=== PATIENT | female | born 1985 | race Caucasian/White ===

== ENCOUNTER 2020-05-08 18:50 | Inpatient (IN) | payer MEDICAID, SELFPAY ==
[2020-05-08 19:19] VITALS: BMI 51.6
[2020-05-08 19:31] VITALS: O2SAT 98
[2020-05-08 19:32] VITALS: BP 134/87; PULSE 100; TEMP 36.3; O2SAT 98
[2020-05-08] MEDS: Lactated Ringers 1,000 ML 50 ML IV (20:00)
[2020-05-08 20:11] LABS: Absolute Lymphocyte Count 2.98 X10^3/uL (0.83-4.51); Absolute Neutrophil Count 9.8 X10^3/uL (2.0-7.7); Basophil# 0.04 X10^3/uL; Basophil% 0.3 % (0-1); Eosinophil# 0.44 X10^3/uL; Eosinophils% 3.1 % (0-5); Hemoglobin 11.7 g/dL (12.0-15.0); Lymphocyte # 2.98 X10^3/ul (4.0); Mean Corp Hgb Conc 31.6 g/dL (32-36); Mean Corpuscular Hgb 26.1 pg (27.0-32.0); Mean Corpuscular Volume 82.6 fL (81-99); Mean Platelet Vol. 10.3 fl (6.2-12.0); Monocyte# 0.84 X10^3/uL; Monocyte% 5.9 % (0-10); NRBC Flagged by Analyzer 0 % (0-5); Neutrophil # 9.84 X10^3/uL (2.7-7.7); Neutrophil % 69.3 % (47-70); Platelet Count 295 K/mm3 (150-450); RBC Distribution Width SD 42.3 fl (35.1-43.9); Red Blood Count 4.48 M/mm3 (4.2-5.4); White Blood Count 14.2 K/mm3 (4.4-11.0)
[2020-05-08] MEDS: miSOPROStol 25 MCG TABLET PO (20:17)
--- NOTE | 2020-05-08 20:49 | PCM.HP.OB ---
- Problem List (1) Chronic hypertension affecting Status: Acute (2) Obesity Status: Acute Qualifiers: Obesity type: unspecified obesity type Obesity classification: unspecified obesity classification Serious obesity comorbidity presence: unspecified whether serious comorbidity present Qualified Code(s): E66.9 - Obesity, unspecified (3) with 39 completed weeks gestation Status: Acute History Date of Admission: 05/08/20 Final NOAH: 05/14/20 Gestational age: 39 Weeks and 1 Days History of this : This is a 34 year-old, G [1], P [0], at 39.1 weeks gestational age for induction of labor for chronic hypertension. Patient denies any loss of fluid, vaginal bleeding or contractions. Positive movement. Denies any headaches or vision changes. complicated by obesity (BMI 52.8), chronic hypertension, S>D but growth US on 04/21/20 shows 50th percentile. Allergies Penicillins Adverse Reaction (Verified 05/08/20 20:04) Rash Home Medications: Home Medications Pnv No.95/Ferrous Fum/Folic AC [ Caplet] 1 tab PO DAILY 05/08/20 Smoking Status: Former smoker Number of Fetus(es): 1 NST - FHR Rate Baby A Baseline: 135 Variability:: Moderate Accelerations:: 15 x 15 Decelerations:: None NST Reactive:: Yes FHR Category:: Category I Uterine Activity:: Irritability History Past Pregnancies: Past Pregnancies Delivery Date Name GA/ Weeks Outcome Route Wt Infant Sex Labor Length Anesthesia Delivery Location Provider FOB Labs: COVID-19 Negative on 05/07/20 A positive Rubella- immune HB- negative RPR- NR HIV- NR GC/CH- negative GBS negative 1 hr GCT - elevated at 156 3 hr GCC- within normal limits PIH labs on 04/14/20- within normal limits Expected Delivery Method: Spontaneous Vaginal Review of Systems Constitutional: Denies: Anorexia, Chills, Fever Cardiovascular: Denies: Chest Pain Respiratory: Denies: Cough, Shortness of Breath Gastrointestinal: Denies: Abdominal Pain Genitourinary: Denies: Dysuria Gynecological: Denies: Vaginal bleeding Neurological: Denies: Blurred vision, Headaches Physical Exam Vitals: Vital Signs Temp Pulse BP Pulse Ox 97.4 F L 100 134/87 H 98 05/08/20 19:32 05/08/20 19:32 05/08/20 19:32 05/08/20 19:32 General: Alert, Oriented x3, Cooperative Cardiovascular: Regular rate, Regular Rhythm Lungs: Clear to auscultation, Normal air movement Abdomen: Soft, Gravid Neurological: Cranial nerves II-XII grossly intact [employer] ADS: Normal external genitalia Presentation: Cephalic Cervix Dilation (cm): 0.5 Station: -3 Effacement (%): 40 Assessment/Plan All Active Problems Chronic hypertension affecting (Acute) Obesity (Acute) with 39 completed weeks gestation (Acute) This is a 34 year-old, G [1], P [0], at 39 weeks gestational age here for induction of labor for chronic hypertension A/P Admit to labor and delivery Routine labs GBS negative IV fluids per protocol Hypertension protocol Cytotec 25 mcg PO every 4 hours throughout night Placement of Wilks bulb in AM Anticipate
[2020-05-08 21:09] VITALS: BP 141/83; PULSE 92; TEMP 36.9; O2SAT 97
[2020-05-08 21:58] VITALS: PULSE 84; O2SAT 97
[2020-05-08 21:59] VITALS: BP 138/80; PULSE 86; TEMP 36.4; O2SAT 97
[2020-05-08] MEDS: 0.9% Saline Lock 10 ML Syringe IV (22:04)
[2020-05-09] VITALS (43 sets, daily range): BP systolic 126–149; BP diastolic 60–80; PULSE 80–100; TEMP 36.3–37.8; O2SAT 94–100
[2020-05-09] MEDS: miSOPROStol 25 MCG TABLET PO ×2 (00:31→05:32)
[2020-05-09] MEDS: 0.9% Saline Lock 10 ML Syringe IV (04:27)
[2020-05-09] MEDS: Lactated Ringers 500 ML 999 ML IV ×2 (04:35→15:30)
[2020-05-09] MEDS: 0.9% Normal Saline Single 100 ML IV.SOLN. IY (08:35)
--- NOTE | 2020-05-09 08:44 | PCM.PN.OB ---
Patient Problems: Active and Suspected Problems Chronic hypertension affecting (Acute) Obesity (Acute) with 39 completed weeks gestation (Acute) Subjective: Doing well, laying comfortable in bed. Partner at bedside. Objective: FHT 130, moderate variability, accels, no decels, Category 1 TOCO: Irregular, mild Cervix: 1cm/70%/-2 Wilks catheter inserted into cervix without complication, 40ml of NS instilled, patient tolerated well. - Physical Exam Vitals/I&O's: Vital Signs Temp Pulse BP Pulse Ox 97.7 F L 95 133/72 H 96 05/09/20 07:41 05/09/20 07:41 05/09/20 07:41 05/09/20 07:41 Weight: 300 lb 12.8 oz Body Mass Index (BMI) 51.6 Intake and Output for Last 24 Hours 05/07/20 05/08/20 05/09/20 23:59 23:59 23:59 Intake Total 103.33 / 103.33 1106.67 / 1106.67 Output Total 700 / 700 Balance 103.33 / 103.33 406.67 / 406.67 Laboratory Results 05/08/20 20:00: WBC 14.2 H, RBC 4.48, Hgb 11.7 L, Hct 37.0, MCV 82.6, MCH 26.1 L, MCHC 31.6 L, RDW Std Deviation 42.3, RDW Coeff of Young 14.0, Plt Count 295, MPV 10.3, Immature Gran % (Auto) 0.400, Neut % (Auto) 69.3, Lymph % (Auto) 21.0, [place] % (Auto) 5.9, Eos % (Auto) 3.1, Baso % (Auto) 0.3, Absolute Neuts (auto) 9.8 H, Absolute Lymphs (auto) 2.98, Nucleated RBC % 0 05/08/20 20:00: Blood Type A POSITIVE, Antibody Screen NEGATIVE Current Medications Acetaminophen (Tylenol) 325 - 650 mg PO Q4H PRN PRN PRN Reason: Pain Score 1-3/10 Al Hydroxide/Mg Hydroxide (Mylanta Ii) 15 - 30 ml PO Q4H PRN PRN PRN Reason: INDIGESTION Citric Acid/Sodium Citrate (Bicitra) 30 ml PO X1 PRN PRN Reason: Section Fentanyl Citrate (Sublimaze (100mcg Ampule)) 25 - 50 mcg IV Q2H PRN PRN PRN Reason: Pain Score 4-10/10 Lactated Ringer's () 500 mls @ 999 mls/hr IV .Q31M PRN PRN Reason: Epidural Lactated Ringer's () 500 mls @ 999 mls/hr IV .Q31M PRN PRN Reason: Corrective Measures Last Infusion: 05/09/20 05:06 Dose: Infused Documented by: Lactated Ringer's () 1,000 mls @ 50 mls/hr IV .Q20H PEDRO Last Infusion: 05/09/20 05:06 Dose: 50 mls/hr Documented by: Misoprostol (Cytotec) 25 mcg PO Q4H PEDRO Last Admin: 05/09/20 05:32 Dose: 25 mcg Documented by: Ondansetron HCl (Zofran) 4 mg IV Q4H PRN PRN PRN Reason: NAUSEA Prochlorperazine Edisylate (Compazine Iv) 10 mg IV Q6H PRN PRN PRN Reason: NAUSEA Sodium Chloride () 10 - 40 ml IV X1 PRN PRN Reason: SALINE FLUSH Last Admin: 05/09/20 04:27 Dose: 10 ml Documented by: Medical Necessity - Tobacco Use Smoking Status: Former smoker Assessment/Plan All Active Problems Chronic hypertension affecting (Acute) Obesity (Acute) with 39 completed weeks gestation (Acute) A:Induction of Labor P: 1) Wilks catheter inserted, will plan to start pitocin around 930am, 4 hours after Cytotec. 2) EFM and TOCO 3) Continue with IOL 4) collaborative physician and notified of patient status.
[2020-05-09] MEDS: Oxytocin 30 units/NS 500 ml 30 UNITS/500 ML IV.SOLN IV (10:33)
[2020-05-09] MEDS: fentaNYL-bupivacaine (epidural) 100 ML BAG EPIDURAL ×2 (16:27→20:32)
[2020-05-09] MEDS: Lactated Ringers 1,000 ML 200 ML IV ×2 (16:40→20:31)
--- NOTE | 2020-05-09 18:09 | PCM.PN.OB ---
Patient Problems: Active and Suspected Problems Chronic hypertension affecting (Acute) Obesity (Acute) with 39 completed weeks gestation (Acute) Subjective: Resting well and comfortable with epidural. Partner at bedside. Objective: FHT 140, moderate variability, accels, Category 1 TOCO: Irregular, Pitocin at 18mu's Cervix 4/70/-1 IBOW AROM for moderate amount of clear fluid patient tolerated well. - Physical Exam Vitals/I&O's: Vital Signs Temp Pulse BP Pulse Ox 98.7 F 95 130/67 H 100 05/09/20 17:23 05/09/20 17:23 05/09/20 17:23 05/09/20 17:23 Weight: 300 lb 12.8 oz Body Mass Index (BMI) 51.6 Intake and Output for Last 24 Hours 05/07/20 05/08/20 05/09/20 23:59 23:59 23:59 Intake Total 103.33 / 103.33 2251.57 / 2251.57 Output Total 1800 / 1800 Balance 103.33 / 103.33 451.57 / 451.57 Laboratory Results 05/08/20 20:00: WBC 14.2 H, RBC 4.48, Hgb 11.7 L, Hct 37.0, MCV 82.6, MCH 26.1 L, MCHC 31.6 L, RDW Std Deviation 42.3, RDW Coeff of Young 14.0, Plt Count 295, MPV 10.3, Immature Gran % (Auto) 0.400, Neut % (Auto) 69.3, Lymph % (Auto) 21.0, Winkler % (Auto) 5.9, Eos % (Auto) 3.1, Baso % (Auto) 0.3, Absolute Neuts (auto) 9.8 H, Absolute Lymphs (auto) 2.98, Nucleated RBC % 0 05/08/20 20:00: Blood Type A POSITIVE, Antibody Screen NEGATIVE Current Medications Acetaminophen (Tylenol) 325 - 650 mg PO Q4H PRN PRN PRN Reason: Pain Score 1-3/10 Al Hydroxide/Mg Hydroxide (Mylanta Ii) 15 - 30 ml PO Q4H PRN PRN PRN Reason: INDIGESTION Citric Acid/Sodium Citrate (Bicitra) 30 ml PO X1 PRN PRN Reason: Section Ephedrine Sulfate () 10 mg IV Q10M PRN PRN Reason: hypotension Ephedrine Sulfate () 10 mg IM Q30M PRN PRN Reason: hypotension Fentanyl Citrate (Sublimaze (100mcg Ampule)) 25 - 50 mcg IV Q2H PRN PRN PRN Reason: Pain Score 4-10/10 Fentanyl/Bupivacaine/Sodium Chlor () 0 ml EPIDURAL UD PEDRO; Protocol Last Admin: 05/09/20 16:27 Dose: 100 ml Documented by: Lactated Ringer's () 500 mls @ 999 mls/hr IV .Q31M PRN PRN Reason: Epidural Last Infusion: 05/09/20 16:01 Dose: Infused Documented by: Lactated Ringer's () 500 mls @ 999 mls/hr IV .Q31M PRN PRN Reason: Corrective Measures Last Infusion: 05/09/20 05:06 Dose: Infused Documented by: Lactated Ringer's () 1,000 mls @ 50 mls/hr IV .Q20H PEDRO Last Admin: 05/09/20 16:40 Dose: 200 mls/hr Documented by: Oxytocin/Sodium Chloride () 30 units in 500 mls @ 2 mls/hr IV .Q250H PEDRO Last Infusion: 05/09/20 17:25 Dose: 18 mls/hr Documented by: Naloxone HCl 4 mg/ Dextrose 504 mls @ 0 mls/hr IV .Q0M PRN; Protocol PRN Reason: To maintain Resp. rate >10 Nalbuphine HCl (Nubain) 5 mg IV Q3H PRN PRN PRN Reason: ITCHING Naloxone HCl (Narcan) 0.02 mg IV Q1M PRN PRN Reason: RR< 10 AND PT UNRESPONSIVE Ondansetron HCl (Zofran) 4 mg IV Q4H PRN PRN PRN Reason: NAUSEA Prochlorperazine Edisylate (Compazine Iv) 10 mg IV Q6H PRN PRN PRN Reason: NAUSEA Sodium Chloride () 10 - 40 ml IV X1 PRN PRN Reason: SALINE FLUSH Last Admin: 05/09/20 04:27 Dose: 10 ml Documented by: Medical Necessity - Tobacco Use Smoking Status: Former smoker Assessment/Plan All Active Problems Chronic hypertension affecting (Acute) Obesity (Acute) with 39 completed weeks gestation (Acute) A:Induction of Labor Category 1 FHT P: 1) Continue with Pitocin induction 2) AROM 3) Epidural for pain management 4) notified of patient status
[2020-05-10] VITALS (35 sets, daily range): BP systolic 109–151; BP diastolic 49–86; PULSE 80–118; RESP 16–18; TEMP 35.7–37.7; O2SAT 92–100
[2020-05-10] MEDS: Lactated Ringers 500 ML 999 ML IV (00:17)
[2020-05-10] MEDS: Lactated Ringers 1,000 ML 200 ML IV (00:54)
[2020-05-10] MEDS: fentaNYL-bupivacaine (epidural) 100 ML BAG EPIDURAL (01:04)
[2020-05-10] MEDS: Sodium Citrate/Citric Acid 30 ML UDC PO (06:54)
--- NOTE | 2020-05-10 07:07 | PCM.PN.BLA ---
Progress Note Patient overnight being managed by Macey Antoine CNM. Patient with arrest of dilation at 8 cm for approximately 7 hours. I came in to assess the patient recheck vaginal exam she is / caput. Discussed with the patient I recommend primary section at this time for arrest of dilation. Discussed the risks of proceeding with a including but not limited to infection, bleeding, injury to pelvic structures. Patient will receive preoperative antibiotics Ancef 3 g and azithromycin 500mg IV. OR team notified. STROKE Vital Signs/Narrative: Vital Signs Temp Pulse BP Pulse Ox 05/10/20 06:38 99.8 F H 97 127/73 H 98 05/10/20 05:48 99.0 F 86 127/68 H 05/10/20 05:47 85 96 05/10/20 04:30 90 151/73 H 05/10/20 03:28 99.6 F H 93 132/73 H 94
--- NOTE | 2020-05-10 07:09 | OP.PCM_ITS ---
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 Description of Procedure: After informed consent was obtained the patient was taken the operating room. She was then placed in the supine position. She was prepped and draped in the normal sterile fashion. Epidural Anesthesia was found to be adequate. At this time a Pfannenstiel skin incision was made with a knife was carried down to the underlying layer of the fascia. The fascial incision was then extended laterally using curved Macias scissor. Tensions was then turned to the superior aspect of the fascial edge was grasped with 2 straight Mckayla clamps tented up and the rectus muscle dissected off sharply using curved Macias scissor. Attention was then turned to the inferior aspect where again [place] clamps were placed in the rectus muscles were tented up and the fascia was dissected off sharply using the curved Macias scissor. Rectus muscles were then in the midline bluntly and peritoneum was entered bluntly. Gentle opposing traction was placed. At this time the vesicouterine peritoneum was identified. Scalpel was used to make a uterine incision in a low transverse fashion. The uterus was then entered bluntly gentle opposing traction was placed to extend this incision. Membranes were ruptured clear. 's head was brought to the uterine incision was delivered atraumatically. Cord was clamped and cut infant was handed to the waiting nursery team. The Placenta was removed from the uterus. The uterus was then removed from the abdominal cavity. The uterus was cleared of all clots and debris using a lap. At this time the uterine incision was reapproximated using #1 Vicryl in a running locked fashion. Hemostasis was appreciated. Posterior cul-de-sac was then cleared of all clots and debris. Uterus was placed back in the abdominal cavity. Gutters were cleared of all clots and debris. Uterine incision was reevaluated and noted to be of excellent hemostasis. At this time the peritoneum was grasped with Kellys reapproximated using #2 Vicryl suture in a running fashion. Muscles then reapproximated using #2 Vicryl in a interrupted mattress suture fashion. Fascia was then reapproximated using #1 Vicryl in a running fashion. Subcu layer was reapproximated with #2 0 plain gut suture in an interrupted fashion. Subcu layer was closed using 4-0 Monocryl in a Raz needle in a subcu fashion. Dry sterile dressing was applied. Instrument lap needle count correct ?2. Anticipated normal postoperative course. Amniotic Membrane Rupture Type: Artificial Amniotic Fluid Description: Clear Placenta Disposition: [facility] Drain: Wilks to straight drain Cord Entanglement: None Cord Vessel Description: 3 Vessels Esitmated Blood Loss (ml): 600 Gender: Male (1 minute): 8 (5 minute): 9 Delayed cord clamping: Yes Antibiotic Given: Ancef 3 grams IV x1, Zithromax 500 mg/5 mL X1 Pt instructed on risks of surgery: Bleeding, Anesthesia Risks, Infection, Injury to surrounding structure(s) including bowel and bladder Complications: None - Admit VTE Documentation VTE Present on Admission: Yes VTE Mechan Device Prophylaxis: SCD's VTE Pharm Prophylaxis ordered?: Yes
[2020-05-10] MEDS: Ondansetron 4 MG/2 ML Vial IV (07:25)
[2020-05-10] MEDS: Methylergonovine 0.2 MG/ML Ampul IM (08:32)
[2020-05-10] MEDS: Oxytocin 30 units/NS 500 ml 30 UNITS/500 ML IV.SOLN 167 UNITS IV (09:33)
[2020-05-10] MEDS: Lactated Ringers 1,000 ML 100 ML IV ×2 (10:50→20:02)
[2020-05-10] MEDS: Senna/Docusate Sodium 1 Tablet PO (12:04)
[2020-05-10] MEDS: Acetaminophen 500 MG Tablet 1000 MG PO ×2 (12:04→18:18)
--- NOTE | 2020-05-10 13:37 | NURSING ---
Patient's SPo2 ranges from 90-94% on room air. Pulse oximeter changed. Patient taught to use incentive spirometer. Oxygen levels improved to 97% while using incentive spirometer, but dropped after using. Lungs are clear. Patient denies cough or SOB. Two liters of O2 via nasal cannula applied. SpO2 is 96%.
[2020-05-10] MEDS: Ketorolac 30 MG/ML Syringe IV ×2 (14:05→20:19)
--- NOTE | 2020-05-10 15:41 | NURSING ---
Patient up to chair for first time post-op. While in chair, SpO2 was 96% on room air. When back in bed, SpO2 dropped to 91% with bed elevated to 45 degrees. 2L of oxygen via NC applied. SpO2 is 97%.
[2020-05-10] MEDS: Lactated Ringers 500 ML IV.SOLN. IV (19:20)
[2020-05-10] MEDS: Enoxaparin 40 MG/0.4 ML Syringe SC (20:19)
[2020-05-11] VITALS (7 sets, daily range): BP systolic 125–139; BP diastolic 73–87; PULSE 92–104; RESP 16–18; TEMP 36.8–37.1; O2SAT 94–100
[2020-05-11] MEDS: Acetaminophen 500 MG Tablet 1000 MG PO ×4 (00:38→19:41)
[2020-05-11] MEDS: Ketorolac 30 MG/ML Syringe IV ×2 (02:16→08:31)
[2020-05-11] MEDS: 0.9% Saline Lock 10 ML Syringe IV ×2 (06:09→08:32)
[2020-05-11 06:14] LABS: Hematocrit 31.3 % (37-47); Mean Corp Hgb Conc 31.9 g/dL (32-36); Mean Corpuscular Hgb 26.5 pg (27.0-32.0); Platelet Count 224 K/mm3 (150-450); RBC Distribution Width CV 14.4 % (11.6-14.6); Red Blood Count 3.77 M/mm3 (4.2-5.4); White Blood Count 19.7 K/mm3 (4.4-11.0)
--- NOTE | 2020-05-11 08:02 | PN.OBGYN_ITS ---
Patient Problems: Active and Suspected Problems Chronic hypertension affecting (Acute) Obesity (Acute) with 39 completed weeks gestation (Acute) Subjective: Patient seen at bedside. Up ambulating in room. Just had boudreaux cath removed 1 hour ago and has not voided. Reports lochia is still moderate. Denies any fe elings of dizziness, headaches, vision changes or chest pain. infant with shield. Receiving support from . Anticipate discharge home tomorrow. - Physical Exam Vitals/I&O's: Vital Signs Temp Pulse Resp BP Pulse Ox 98.3 F 94 16 126/73 H 98 05/11/20 03:00 05/11/20 07:00 05/11/20 07:00 05/11/20 03:00 05/11/20 07:00 Oxygen Flow Rate (L/min) 2 Oxygen Delivery Method Room Air Weight: 300 lb 12.8 oz Body Mass Index (BMI) 51.6 Intake and Output for Last 24 Hours 05/09/20 05/10/20 05/11/20 23:59 23:59 23:59 Intake Total 3058.47 / 3058.47 5557.34 / 5557.34 1000 / 1000 Output Total 1800 / 1800 1600 / 1600 1400 / 1400 Balance 1258.47 / 1258.47 3957.34 / 3957.34 -400 / -400 General: Alert, Oriented x3 Lungs: Normal air movement Cardiovascular: Regular rate Abdomen: Soft, Non-Distended, Passing Flatus Skin: No rashes Neurological: Cranial nerves II-XII grossly intact Psych/Mental Status: Normal Affect Laboratory Results 05/11/20 06:05: WBC 19.7 H, RBC 3.77 L, Hgb 10.0 L, Hct 31.3 L, MCV 83.0, MCH 26.5 L, MCHC 31.9 L, RDW Std Deviation 42.0, RDW Coeff of Yonug 14.4, Plt Count 224, MPV 10.0 Current Medications Acetaminophen (Tylenol) 1,000 mg PO Q6H [facility] Last Admin: 05/11/20 06:08 Dose: 1,000 mg Documented by: Bisacodyl (Dulcolax) 10 mg RECTAL UD PRN PRN Reason: If no BM Diphenhydramine HCl (Benadryl) 25 mg PO Q6H PRN PRN PRN Reason: ITCHING Stop: 05/11/20 08:18 Enoxaparin Sodium (Lovenox) 40 mg SC BID [facility] Last Admin: 05/10/20 20:19 Dose: 40 mg Documented by: Hydrocortisone (Hytone) 1 applic TOPICAL TID PRN PRN; Protocol PRN Reason: Discomfort Naloxone HCl 4 mg/ Dextrose 504 mls @ 0 mls/hr IV .Q0M PRN; Protocol PRN Reason: To maintain Resp. rate >10 Lactated Ringer's () 1,000 mls @ 100 mls/hr IV .Q10H [facility] Last Infusion: 05/11/20 06:08 Dose: Infused Documented by: Naloxone HCl 4 mg/ Dextrose 504 mls @ 0 mls/hr IV .Q0M PRN; Protocol PRN Reason: Respiratory depression Ibuprofen (Motrin) 600 mg PO Q6H [facility] Ketorolac Tromethamine (Toradol (Bkc)) 30 mg IV Q6H [facility] Stop: 05/11/20 08:31 Last Admin: 05/11/20 02:16 Dose: 30 mg Documented by: Methylergonovine Maleate (Methergine) 0.2 mg IM X1 PRN PRN Reason: Uterine Atony Last Admin: 05/10/20 08:32 Dose: 0.2 mg Documented by: Naloxone HCl (Narcan) 0.02 mg IV Q1M PRN PRN Reason: RR< 10 AND PT UNRESPONSIVE Naloxone HCl (Narcan) 0.02 mg IV Q1M PRN PRN Reason: RR <10 and pt unresponsive Ondansetron HCl (Zofran) 4 mg IV Q4H PRN PRN PRN Reason: Nausea Last Admin: 05/10/20 07:25 Dose: 4 mg Documented by: Oxycodone HCl (Oxyir) 5 - 10 mg PO Q4H PRN PRN PRN Reason: Pain Score 4-10/10 Prochlorperazine Edisylate (Compazine Iv) 10 mg IV Q6H PRN PRN PRN Reason: NAUSEA Senna/Docusate Sodium (Senokot-S, Krysten-Colace) 0 tablet PO DAILY [facility] Last Admin: 05/10/20 12:04 Dose: 1 tablet Documented by: Simethicone (Mylicon) 80 mg PO HS PRN PRN Reason: Indigestion/stomach pain Sodium Chloride () 5 - 15 ml IV UD PRN PRN Reason: SALINE FLUSH Last Admin: 05/11/20 06:09 Dose: 5 ml Documented by: Medical Necessity - Tobacco Use Smoking Status: Former smoker Assessment/Plan All Active Problems Chronic hypertension affecting (Acute) Obesity (Acute) with 39 completed weeks gestation (Acute) A/P Post op primary c/s day #2 Pain control Routine care Ambulating support Continue to monitor urine output Anticipate discharge home tomorrow
[2020-05-11] MEDS: Enoxaparin 40 MG/0.4 ML Syringe SC ×2 (10:49→21:06)
[2020-05-11] MEDS: Senna/Docusate Sodium 1 Tablet PO (10:49)
[2020-05-11] MEDS: oxyCODONE 5 MG Tablet PO ×2 (13:02→13:15)
[2020-05-11] MEDS: Ibuprofen 600 MG Tablet PO ×2 (14:53→21:06)
[2020-05-12] MEDS: Acetaminophen 500 MG Tablet 1000 MG PO ×3 (01:15→13:10)
[2020-05-12 01:17] VITALS: BP 132/85; PULSE 96; RESP 16; TEMP 36.7; O2SAT 96
[2020-05-12] MEDS: Ibuprofen 600 MG Tablet PO ×3 (03:10→15:20)
--- NOTE | 2020-05-12 07:11 | PN.OBGYN_ITS ---
Patient Problems: Active and Suspected Problems Chronic hypertension affecting (Acute) Obesity (Acute) with 39 completed weeks gestation (Acute) Subjective: Patient seen at bedside. Up ambulating in room. Lochia is decreasing. Passing flatus. Voiding without difficulty. infant with shield. Working with . Desires discharge home today. Objective: Dressing is dry and intact - Physical Exam Vitals/I&O's: Vital Signs Temp Pulse Resp BP Pulse Ox 98.1 F 96 16 132/85 H 96 05/12/20 01:17 05/12/20 01:17 05/12/20 01:17 05/12/20 01:17 05/12/20 01:17 Oxygen Flow Rate (L/min) 2 Oxygen Delivery Method Room Air Weight: 300 lb 12.8 oz Body Mass Index (BMI) 51.6 Intake and Output for Last 24 Hours 05/10/20 05/11/20 05/12/20 23:59 23:59 23:59 Intake Total 5557.34 / 5557.34 1000 / 1000 Output Total 1600 / 1600 1900 / 1900 Balance 3957.34 / 3957.34 -900 / -900 General: Alert, Oriented x3, Cooperative HEENT: Atraumatic Oral: Moist Mucosa Lungs: Normal air movement Cardiovascular: Regular rate Abdomen: Soft, Passing Flatus, Obese Skin: No rashes Musculoskeletal: No Tenderness to Palpation of Joints or Extremities Neurological: Cranial nerves II-XII grossly intact Psych/Mental Status: Normal Affect Current Medications Acetaminophen (Tylenol) 1,000 mg PO Q6H [facility] Last Admin: 05/12/20 06:53 Dose: 1,000 mg Documented by: Bisacodyl (Dulcolax) 10 mg RECTAL UD PRN PRN Reason: If no BM Enoxaparin Sodium (Lovenox) 40 mg SC BID [facility] Last Admin: 05/11/20 21:06 Dose: 40 mg Documented by: Hydrocortisone (Hytone) 1 applic TOPICAL TID PRN PRN; Protocol PRN Reason: Discomfort Naloxone HCl 4 mg/ Dextrose 504 mls @ 0 mls/hr IV .Q0M PRN; Protocol PRN Reason: To maintain Resp. rate >10 Naloxone HCl 4 mg/ Dextrose 504 mls @ 0 mls/hr IV .Q0M PRN; Protocol PRN Reason: Respiratory depression Ibuprofen (Motrin) 600 mg PO Q6H [facility] Last Admin: 05/12/20 03:10 Dose: 600 mg Documented by: Methylergonovine Maleate (Methergine) 0.2 mg IM X1 PRN PRN Reason: Uterine Atony Last Admin: 05/10/20 08:32 Dose: 0.2 mg Documented by: Naloxone HCl (Narcan) 0.02 mg IV Q1M PRN PRN Reason: RR< 10 AND PT UNRESPONSIVE Naloxone HCl (Narcan) 0.02 mg IV Q1M PRN PRN Reason: RR <10 and pt unresponsive Ondansetron HCl (Zofran) 4 mg IV Q4H PRN PRN PRN Reason: Nausea Last Admin: 05/10/20 07:25 Dose: 4 mg Documented by: Oxycodone HCl (Oxyir) 5 - 10 mg PO Q4H PRN PRN PRN Reason: Pain Score 4-10/10 Last Admin: 05/11/20 13:15 Dose: 5 mg Documented by: Prochlorperazine Edisylate (Compazine Iv) 10 mg IV Q6H PRN PRN PRN Reason: NAUSEA Senna/Docusate Sodium (Senokot-S, Krysten-Colace) 0 tablet PO DAILY [facility] Last Admin: 05/11/20 10:49 Dose: 2 tablet Documented by: Simethicone (Mylicon) 80 mg PO [facility] PRN PRN Reason: Indigestion/stomach pain Sodium Chloride () 5 - 15 ml IV UD PRN PRN Reason: SALINE FLUSH Last Admin: 05/11/20 08:32 Dose: 10 ml Documented by: Medical Necessity - Tobacco Use Smoking Status: Former smoker Assessment/Plan All Active Problems Chronic hypertension affecting (Acute) Obesity (Acute) with 39 completed weeks gestation (Acute)
--- NOTE | 2020-05-12 07:14 | DCINST_ITS ---
Discharge Diet: No Restrictions Discharge Activity: Return to Normal Activity May resume sexual activity in: 6-8 weeks Additional Instructions: If you experience any of the following, contact your healthcare provider. * Bleeding that soaks a pad every hour for 2 hours * Fever 100.4 or higher * Unrelieved incision or abdominal pain * Swelling, redness, discharge or bleeding from your incision or episiotomy site * Your incision begins to separate * Problems urinating (including inability to urinate or burning while urinating). * Visual changes * Severe headache * Flu-like symptoms * Pain or redness in one of both of your breasts * Pain, warmth, tenderness or swelling in your legs, especially the calf area * Frequent nausea and vomiting * Symptoms of depression or anxiety If you experience any of the following, call 911 or go to the nearest Emergency Room. * Chest pain * Problems breathing * Seizure activity * Partial or complete paralysis of a body part, slurred speech, weakness or drooping of the face, or a sudden inability to walk or hold your balance Allergies/Adverse Reactions: Allergies Penicillins Adverse Reaction (Verified 05/08/20 20:04) Rash Medications to take at Discharge Pnv No.95/Ferrous Fum/Folic AC [ Caplet] 1 tab PO DAILY 05/08/20 Follow-Up: Call to make an appointment with your doctor for an incision check in 1-2 weeks. You will also need a 6 week post- follow up appointment. Test results from this visit will be discussed in further detail at your follow- up appointment, if applicable. Primary Care Physician: Bandar Velasquez MD [Primary Care Provider] -
--- NOTE | 2020-05-12 07:14 | PCM.DCCSEC ---
Discharge Diet: No Restrictions Discharge Activity: Return to Normal Activity May resume sexual activity in: 6-8 weeks Additional Instructions: If you experience any of the following, contact your healthcare provider. Bleeding that soaks a pad every hour for 2 hours Fever 100.4 or higher Unrelieved incision or abdominal pain Swelling, redness, discharge or bleeding from your incision or episiotomy site Your incision begins to separate Problems urinating (including inability to urinate or burning while urinating). Visual changes Severe headache Flu-like symptoms Pain or redness in one of both of your breasts Pain, warmth, tenderness or swelling in your legs, especially the calf area Frequent nausea and vomiting Symptoms of depression or anxiety If you experience any of the following, call 911 or go to the nearest Emergency Room. Chest pain Problems breathing Seizure activity Partial or complete paralysis of a body part, slurred speech, weakness or drooping of the face, or a sudden inability to walk or hold your balance Allergies/Adverse Reactions: Allergies Penicillins Adverse Reaction (Verified 05/08/20 20:04) Rash Medications to take at Discharge Pnv No.95/Ferrous Fum/Folic AC [ Caplet] 1 tab PO DAILY 05/08/20 Follow-Up: Call to make an appointment with your doctor for an incision check in 1-2 weeks. You will also need a 6 week post- follow up appointment. Test results from this visit will be discussed in further detail at your follow-up appointment, if applicable. Primary Care Physician: Bandar Velasquez MD [Primary Care Provider] -
--- NOTE | 2020-05-12 07:16 | PCM.DC.SUM ---
Discharge Date and Diagnosis - Problem List Patient Problems: Active and Suspected Problems Chronic hypertension affecting (Acute) Obesity (Acute) with 39 completed weeks gestation (Acute) Date of Admission: 05/08/20 Date of Discharge: 05/12/20 - Primary Discharge Diagnosis Acute Problems: Active Problems Chronic hypertension affecting (Acute) Obesity (Acute) with 39 completed weeks gestation (Acute) Hospital Course and Treatment Consultations 05/08/20 19:20 Consult: Anesthesia Routine Comment: Reason For Exam: Labor Summary of Care Provided: The patient is a 34 year old F for primary c/s for failure to progress. Hospital course was uncomplicated] Patient Problems: Active and Suspected Problems Chronic hypertension affecting (Acute) Obesity (Acute) with 39 completed weeks gestation (Acute) - Physical Exam Vitals/I&O's: Vital Signs Temp Pulse Resp BP Pulse Ox 98.1 F 96 16 132/85 H 96 05/12/20 01:17 05/12/20 01:17 05/12/20 01:17 05/12/20 01:17 05/12/20 01:17 Oxygen Flow Rate (L/min) 2 Oxygen Delivery Method Room Air Weight: 300 lb 12.8 oz Body Mass Index (BMI) 51.6 Intake and Output for Last 24 Hours 05/10/20 05/11/20 05/12/20 23:59 23:59 23:59 Intake Total 5557.34 / 5557.34 1000 / 1000 Output Total 1600 / 1600 1900 / 1900 Balance 3957.34 / 3957.34 -900 / -900 Current Medications Acetaminophen (Tylenol) 1,000 mg PO Q6H [facility] Last Admin: 05/12/20 06:53 Dose: 1,000 mg Documented by: Bisacodyl (Dulcolax) 10 mg RECTAL UD PRN PRN Reason: If no BM Enoxaparin Sodium (Lovenox) 40 mg SC BID [facility] Last Admin: 05/11/20 21:06 Dose: 40 mg Documented by: Hydrocortisone (Hytone) 1 applic TOPICAL TID PRN PRN; Protocol PRN Reason: Discomfort Naloxone HCl 4 mg/ Dextrose 504 mls @ 0 mls/hr IV .Q0M PRN; Protocol PRN Reason: To maintain Resp. rate >10 Naloxone HCl 4 mg/ Dextrose 504 mls @ 0 mls/hr IV .Q0M PRN; Protocol PRN Reason: Respiratory depression Ibuprofen (Motrin) 600 mg PO Q6H [facility] Last Admin: 05/12/20 03:10 Dose: 600 mg Documented by: Methylergonovine Maleate (Methergine) 0.2 mg IM X1 PRN PRN Reason: Uterine Atony Last Admin: 05/10/20 08:32 Dose: 0.2 mg Documented by: Naloxone HCl (Narcan) 0.02 mg IV Q1M PRN PRN Reason: RR< 10 AND PT UNRESPONSIVE Naloxone HCl (Narcan) 0.02 mg IV Q1M PRN PRN Reason: RR <10 and pt unresponsive Ondansetron HCl (Zofran) 4 mg IV Q4H PRN PRN PRN Reason: Nausea Last Admin: 05/10/20 07:25 Dose: 4 mg Documented by: Oxycodone HCl (Oxyir) 5 - 10 mg PO Q4H PRN PRN PRN Reason: Pain Score 4-10/10 Last Admin: 05/11/20 13:15 Dose: 5 mg Documented by: Prochlorperazine Edisylate (Compazine Iv) 10 mg IV Q6H PRN PRN PRN Reason: NAUSEA Senna/Docusate Sodium (Senokot-S, Krysten-Colace) 0 tablet PO DAILY [facility] Last Admin: 05/11/20 10:49 Dose: 2 tablet Documented by: Simethicone (Mylicon) 80 mg PO PCHS PRN PRN Reason: Indigestion/stomach pain Sodium Chloride () 5 - 15 ml IV UD PRN PRN Reason: SALINE FLUSH Last Admin: 05/11/20 08:32 Dose: 10 ml Documented by: Discharge Diet: No Restrictions Discharge Activity: Return to Normal Activity May resume sexual activity in: 6-8 weeks Home Medications: Medications to take at Discharge Pnv No.95/Ferrous Fum/Folic AC [ Caplet] 1 tab PO DAILY 05/08/20 Primary Care Physician: Bandar Velasquez MD [Primary Care Provider] - Medical Necessity - Tobacco Use Smoking Status: Former smoker Meaningful Use Info Meaningful Use Diagnoses (Choose all that apply): None applicable
[2020-05-12 08:25] VITALS: BP 121/80; PULSE 87; RESP 16; TEMP 36.7; O2SAT 98
[2020-05-12] MEDS: Enoxaparin 40 MG/0.4 ML Syringe SC (10:19)
[2020-05-12] MEDS: Senna/Docusate Sodium 1 Tablet PO (10:19)
[2020-05-12 14:00] VITALS: BP 132/59; PULSE 85; RESP 18; TEMP 36.8
--- NOTE | 2020-05-16 13:34 | NURSING ---
Here for consult, mother was satisfied with her care, and had questions about swelling in her legs, discussed signs of DVT and when to call
== END 2020-05-12 16:20 | disposition home or self-care (01) | DRG 540 ==
PROVIDERS: Advanced Practice Midwife; Admitting Provider Obstetrics & Gynecology; PCP Family Medicine; Visit Provider Obstetrics & Gynecology
DX: O62.0 Primary inadequate contractions (principal); O10.92 Unspecified pre-existing hypertension complicating childbirth; O99.214 Obesity complicating childbirth; E66.9 Obesity, unspecified; Z87.891 Personal history of nicotine dependence; Z37.0 Single live birth; Z3A.39 39 weeks gestation of pregnancy; O34.13 Maternal care for benign tumor of corpus uteri, third trimester; D25.2 Subserosal leiomyoma of uterus
CPT/HCPCS: 59025; 59050; 85025; 85027; 86850; 86900; 86901; 99218; 99251; J7120; A4216; G0378; G0463; J2405

== ENCOUNTER 2024-05-31 06:28 | Emergency (ER) | payer BC, SELFPAY ==
[2024-05-31 06:29] VITALS: BP 143/85; PULSE 96; RESP 18; TEMP 36.6; O2SAT 98; BMI 64.3
--- NOTE | 2024-05-31 06:40 | ED.VIS.GI ---
HPI HPI - GI History of Present Illness Chief Complaint: Abd Pain Informant: patient Narrative Narrative: 38-year-old female presenting around 6:30 AM for 2 hours worth of GI symptoms that started this morning. She states that started with periumbilical and left-sided abdominal cramping that feels similar to menstrual cramping but in the wrong location, and without any vaginal bleeding or other vaginal complaints. She sat on the toilet to urinate and was not trying to have a bowel movement, nor did she push hard, but afterwards, she got up and she felt lightheaded like she was going to pass out, although she did not and it passed. About an hour later she was nauseated and vomited. There is no blood or anything unusual like coffee-ground. Bowel movements been normal lately. Last normal menstrual cycle was about a month ago. She states some months she goes without any bleeding. Not that she knows of. Prior no other abdominal surgeries. No known sick contacts no fevers that she knows of. PFSH PFS Home Medications ?Medication ?Instructions ?Recorded ?Last Taken ?Type vit no.95-ferrous 1 tab PO DAILY 05/08/20 05/07/20 21:00 History fumarate 28 mg-folic acid 800 mcg tablet dicyclomine 10 mg capsule 20 mg (2 x 10 mg) PO Q6H PRN PRN 05/31/24 Unknown Rx abdominal discomfort #16 CAPSULES ondansetron 8 mg disintegrating 8 mg PO Q8H PRN nausea and 05/31/24 Unknown Rx tablet vomiting #12 tabs Allergy/AdvReac Type Severity Reaction Status Date / Time Penicillins AdvReac Rash Verified 07/06/20 15:51 Surgical History (Updated 05/31/24 @ 06:[address] Dago Antunez MD) History of Social History Smoking Status: Former smoker ROS ROS ED Constitutional Constitutional ED: Denies chills or fever(s) Eyes Eyes: Denies change in vision or diplopia ENT ENT ED: Denies rhinorrhea or sore throat Cardiovascular Cardiovascular: Denies chest pain or palpitations Respiratory/Chest Respiratory/Chest: Denies cough or dyspnea Gastrointestinal Gastrointestinal: Reports abdominal pain, nausea and vomiting; Denies diarrhea Genitourinary Genitourinary ED: Denies dysuria or hematuria Musculoskeletal Musculoskeletal: Denies back pain or neck pain Integumentary Denies abscess or rash Neurologic Neurologic: Denies headache(s), paresthesias or weakness Psychiatric Psychiatric: Denies anxiety or suicidal thoughts EXAM Physical Exam Const Vital Signs: 05/31/24 06:29 Temperature 97.8 F Temperature Source Oral Pulse Rate 96 Respiratory Rate 18 Blood Pressure 143/85 H Blood Pressure Mean 104 Pulse Ox 98 Oxygen Delivery Method Room Air Positive well nourished, well developed and obese General Appearance ED: well developed and NAD Nutritional Appearance: obese HEENT Reports moist mucous membranes normocephalic and atraumatic Eyes PERRL and EOMs intact bilaterally Neck full ROM and supple Resp normal respiratory effort and clear to auscultation bilaterally Cardio regular rate, regular rhythm and no murmurs GI non-distended GI Narrative: Mild periumbilical/supraumbilical tenderness, no palpable hernia, no guarding or rebound, no other areas of tenderness. Auscultation: hyperactive bowel sounds Palpation: soft Back/Spine no CVA tenderness General Back: other FROM Extremity normal to inspection General Extremety ED: Negative for edema, pulses abnormal or tenderness General Extremity: Negative for edema or pulses abnormal Neuro oriented x3, CN's II-XII intact bilaterally and no sensory deficits noted Sensorium / Orientation: awake and alert Motor Exam: strength 5/5 throughout Skin no rashes or lesions noted and no wounds MDM MDM MDM Narrative Medical decision making narrative: Patient seems to be having intestinal pain/spasm. At this time, it is only been a couple hours, but most consistent with gastritis. This could be viral in etiology, or also diet-related. Labs ordered to rule out ectopic , and to screen for more severe intra-abdominal inflammatory disorders, including pancreatitis, hepatobiliary pathology. While awaiting lab results, patient getting medications for her symptoms including Mylanta, dicyclomine, and Zofran. Labs noted, she is a mild leukocytosis but no shift or bandemia on the rest of her labs are unremarkable. On reevaluation, pain is gone after the above medications, and I reexamined her. She is no longer tender. Although we considered advanced imaging, since she is better with treating functional intestinal spasm and pain, I do not think it is indicated at this time therefore should be discharged with prescriptions for medications to use as needed, given instructions for supportive care and reasons to return she is comfortable with that plan. Lab Data Attestation: I reviewed the patient's lab results. Labs: Laboratory Results - last 24 hr 05/31/24 06:50 WBC 13.3 H RBC 4.83 Hgb 12.8 Hct 40.4 MCV 83.6 MCH 26.5 L MCHC 31.7 L RDW Std Deviation 40.3 RDW Coeff of Young 13.2 Plt Count 299 MPV 10.8 Immature Gran % (Auto) 0.300 Neut % (Auto) 60.2 Lymph % (Auto) 31.1 Lyon % (Auto) 4.1 Eos % (Auto) 3.8 Baso % (Auto) 0.5 Absolute Neuts (auto) 8.0 H Absolute Lymphs (auto) 4.13 Nucleated RBC % 0 Sodium 139 Potassium 3.4 L Chloride 108 H Carbon Dioxide 25.0 Anion Gap 6 BUN 11 Creatinine 0.78 Estim Creat Clear Calc 153.25 Est GFR (MDRD) Af Amer 108 Est GFR (MDRD) Non-Af 89 BUN/Creatinine Ratio 14.2 Glucose 126 H Calcium 9.0 Total Bilirubin 0.60 AST 15 ALT 37 Alkaline Phosphatase 77 Total Protein 7.7 Albumin 3.3 Globulin 4.4 H Albumin/Globulin Ratio 0.8 L Lipase 27 Serum , Qual NEGATIVE Discharge Plan Triage Chief Complaint: Abd Pain Other Complaint: Dizziness Nausea/Vomiting ED Provider: Dago Antunez Dx/Rx/DC Orders Clinical Impression: Acute gastritis without hemorrhage, Vasovagal near-syncope Instructions: ED Gastritis (Adult), ED Near-Fainting- Vagal Reaction Prescriptions: New dicyclomine 10 mg capsule 20 mg PO Q6H PRN PRN (Reason: abdominal discomfort) Qty: 16 0RF ondansetron 8 mg tablet,disintegrating 8 mg PO Q8H PRN (Reason: nausea and vomiting) Qty: 12 0RF No Action PNV cmb#95-ferrous fumarate-FA 1 EACH tablet 1 tab PO DAILY Primary Care Provider: Care Physician,No Primary Referrals: Bandar Velasquez MD [Non-Staff] - 3-5 Days if not improving Print Language: Honduran Disposition Disposition: Home, Self Care
[2024-05-31 06:59] LABS: Absolute Lymphocyte Count 4.13 X10^3/uL (0.83-4.51); Basophil# 0.06 X10^3/uL; Basophil% 0.5 % (0-1); Eosinophil# 0.51 X10^3/uL; Eosinophils% 3.8 % (0-5); Hematocrit 40.4 % (37-47); Hemoglobin 12.8 g/dL (12.0-15.0); Lymphocyte # 4.13 X10^3/ul (0.83-4.51); Lymphocyte % 31.1 % (19-41); Mean Corp Hgb Conc 31.7 g/dL (32-36); Mean Corpuscular Hgb 26.5 pg (27.0-32.0); Mean Corpuscular Volume 83.6 fL (81-99); Mean Platelet Vol. 10.8 fl (6.2-12.0); Monocyte# 0.54 X10^3/uL; Monocyte% 4.1 % (0-10); NRBC Flagged by Analyzer 0 % (0-5); Neutrophil % 60.2 % (47-70); Platelet Count 299 K/mm3 (150-450); RBC Distribution Width CV 13.2 % (11.6-14.6); RBC Distribution Width SD 40.3 fl (35.1-43.9); Red Blood Count 4.83 M/mm3 (4.2-5.4); White Blood Count 13.3 K/mm3 (4.4-11.0)
[2024-05-31 07:02] LABS: Internal QC Validated? YES +Cl - CLEAR BKGD; Pregnancy, Serum, hCG Quali. NEGATIVE Negative
[2024-05-31] MEDS: Mag /Aluminum/Simeth WCH UDC 30 ML ORAL.SUSP PO (07:09)
[2024-05-31] MEDS: Dicyclomine 10 MG Capsule 20 MG PO (07:09)
[2024-05-31] MEDS: Ondansetron 4 MG/2 ML Vial IV (07:09)
[2024-05-31 07:10] LABS: ALB/GLOB Ratio 0.8 RATIO (0.9-2.4); AST(SGOT) 15 U/L (15-37); Alanine Aminotransfer ALT/SGPT 37 U/L (13-56); Albumin, Serum 3.3 g/dL (3.2-5.0); Alkaline Phosphatase 77 U/L (45-117); Anion Gap 6 (5-15); BUN 11 mg/dL (7-18); BUN/Creat Ratio 14.2 RATIO (10-20); Chloride 108 mmol/L (98-107); Creatinine, Serum 0.78 mg/dL (0.55-1.02); EST Glomerular Filtration Rate 89 mL/min (>60); Est Glom Filt Rate - Afr Amer 108 mL/min (>60); Estimated Creatinine Clearance 153.25 ml/min; Globulin 4.4 g/dL (2.2-4.2); Glucose 126 mg/dL (74-106); Lipase 27 U/L (13-75); Potassium 3.4 mmol/L (3.5-5.1); Protein, Total 7.7 g/dL (6.4-8.2); Sodium Level 139 mmol/L (136-145)
[2024-05-31 08:06] VITALS: BP 137/88; PULSE 72; RESP 15; TEMP 36.7; O2SAT 99
== END 2024-05-31 08:06 | disposition home or self-care (01) ==
PROVIDERS: Emergency Provider Emergency Medicine; Visit Provider Emergency Medicine
DX: K29.00 Acute gastritis without bleeding (principal); R55 Syncope and collapse; Z87.891 Personal history of nicotine dependence
CPT/HCPCS: 80053; 83690; 84703; 85025; 96374; 99284; J2405